=== PATIENT | male | born 1975 | race Two or more races ===

== ENCOUNTER 2022-07-31 21:06 | Emergency (ER) | payer OTHER ==
[~2022-07-31] VITALS: Ht 180.3 cm; Wt 106.1 kg
[2022-07-31] MEDS ORDERED: PAXLOVID 300-11 EACH PO (23:36)
== END 2022-08-01 | disposition home or self-care (01) ==
LOC: ER 21:06
DX: U07.1 COVID-19 (principal); R50.9 Fever, unspecified; Z88.6 Allergy status to analgesic agent; J45.909 Unspecified asthma, uncomplicated

== ENCOUNTER 2024-04-17 11:39 | Emergency (ER) | payer OTHER ==
[~2024-04-17] VITALS: Ht 180.3 cm; Wt 107.0 kg
[~2024-04-17 11:39] MED LIST: PAXLOVID 300-11 EACH PO
[2024-04-17] MEDS ORDERED: COZAAR25 MG (11:49)
[2024-04-17] MEDS ORDERED: GUAIFENESIN 200 MG/10 ML BLIST.PACK PO ONE ×2 (14:30→14:41)
[2024-04-17 16:01] LABS: HEMOGLOBIN 14.9 g/dL (13-16.00); MEAN CELL VOLUME 85.6 fL (80.0-100.00); MEAN CORPUSCULAR HEMOGLOBIN 29.7 pg (27.00-32.0); MEAN CORPUSCULAR HGB CONC 34.8 g/dl (32.0-36.0); PLATELET COUNT 154 K/uL (150-450); RED BLOOD COUNT 5.02 M/uL (4.00-6.00); RED CELL DISTRIBUTION WIDTH 12.7 % (11.5-14.5)
== END 2024-04-17 16:26 | disposition home or self-care (01) ==
LOC: ER 11:41
PROVIDERS: General Practice
DX: B34.9 Viral infection, unspecified (principal); Z20.822 Contact with and (suspected) exposure to COVID-19; I10 Essential (primary) hypertension; Z88.6 Allergy status to analgesic agent; Z87.09 Personal history of other diseases of the respiratory system